=== PATIENT | female | born 1960 | race American Indian/Alaskan Native ===

== ENCOUNTER 2017-03-12 16:29 | Emergency (ER) | payer MEDICAID ==
[2017-03-12 17:32] VITALS: BP 117/69
--- NOTE | 2017-03-12 18:00 | Cat Scan Report ---
FINAL REPORT PROCEDURE: CT HEAD/BRAIN WO CON TECHNIQUE: Computerized tomography of the head was performed without contrast material. HISTORY: neuro deficits < 6hrs or sx present upon awakening COMPARISON: No prior studies are available for comparison. FINDINGS: Skull and scalp: Normal. Paranasal sinuses: Normal. Ventricles and subarachnoid spaces: Normal. Cerebrum: No evidence of hemorrhage, acute infarction or mass . Cerebellum and brainstem: No evidence of hemorrhage, acute infarction or mass. Vasculature: Dominant left vertebral artery Comments: None. IMPRESSION: No acute intracranial pathology seen at this time
[2017-03-12 19:02] LABS: Basophils % (Auto) 0.2 % (0.0-1.8); Eosinophils % (Auto) 0.4 % (0.0-4.3); Hematocrit 44.9 % (30.3-42.9); Hemoglobin 15.1 gm/dl (10.1-14.3); Lymphocytes # (Auto) 3.3 K/mm3 (1.2-5.4); Lymphocytes % (Auto) 30.8 % (13.4-35.0); Mean Corpuscular HGB Conc 34 % (30-34); Mean Corpuscular Hemoglobin 32 pg (28-32); Mean Corpuscular Volume 95 fl (79-97); Monocytes # (Auto) 0.6 K/mm3 (0.0-0.8); Platelet Count 197 K/mm3 (140-440); Red Blood Count 4.72 M/mm3 (3.65-5.03); Red Cell Distribution Width 13.8 % (13.2-15.2)
[2017-03-12 19:13] LABS: INR 0.89 (0.87-1.13)
[2017-03-12 19:14] LABS: Thrombin Time 16.3 Sec. (15.1-19.6)
[2017-03-12 19:36] LABS: BUN/Creatinine Ratio 20; Blood Urea Nitrogen 16 mg/dL (7-17); Hemolysis Index 10
== END 2017-03-12 23:05 | disposition left against medical advice (07) ==
LOC: ED 16:29
DX: H53.8 Other visual disturbances (principal); Z53.21 Procedure and treatment not carried out due to patient leaving prior to being seen by health care provider
CPT/HCPCS: 36415; 70450; 80048; 84484; 85025; 85610; 85670; 85730

== ENCOUNTER 2017-04-07 06:01 | Day surgery (SDC) | payer MEDICAID ==
--- NOTE | 2017-04-07 06:54 | Anesthesia Day of Surgery ---
Anesthesia Day of Surgery - Day of Surgery Patient Examined: Yes Patient H&P Reviewed: Yes Patient is NPO: Yes
--- NOTE | 2017-04-07 06:54 | Anesthesia Consultation ---
Anesthesia Consult and Med Hx Date of service: 04/07/17 - Airway Anesthetic Teeth Evaluation: Dentures ROM Head & Neck: Adequate Mental/Hyoid Distance: Adequate Mallampati Class: Class I Intubation Access Assessment: Good - Pulmonary Exam CTA: Yes - Cardiac Exam Cardiac Exam: RRR - Pre-Operative Health Status ASA Pre-Surgery Classification: ASA3 Proposed Anesthetic Plan: MAC (HIV) - Pulmonary Hx Smoking: Yes (FOR 20 YEARS, 1PPD) - Central Nervous System Hx Psychiatric Problems: No - Other Systems Hx Alcohol Use: No Hx Substance Use: No Hx Cancer: No
[2017-04-07] MEDS: MYDRIACYL OD SCH ×3 (06:55→07:05)
[2017-04-07] MEDS: AK-Dilate OD SCH ×3 (06:55→07:05)
[2017-04-07] MEDS: VIGAMOX OD SCH ×3 (06:55→07:05)
[2017-04-07] MEDS ORDERED: TETRACAINE 0.5% OD PRN (07:00)
[2017-04-07] MEDS ORDERED: VERSED ONE (07:46)
[2017-04-07] MEDS ORDERED: SUBLIMAZE ONE (07:46)
[2017-04-07] MEDS ORDERED: PRED FORTE 1% ONE (07:54)
[2017-04-07] MEDS ORDERED: VISION BLUE IO ONE ×2 (08:05→14:09)
[2017-04-07] MEDS ORDERED: DIAMOX IV ONE (08:35)
--- NOTE | 2017-04-07 08:37 | Operative Report ---
Operative Report Operative Report: PATIENT'S NAME: DATE OF : DATE OF SURGERY: 04/07/2017 PREOPERATIVE DIAGNOSIS: Cataract white right eye POSTOPERATIVE DIAGNOSIS: Same OPERATIVE PROCEDURE: Phacoemulsification with intraocular lens implantation, trypan blue right eye SURGEON: Abby Quiroz M.D. TREE FELLER OPERATOR SURGEON: Moriah Lens: [id number] 18.0 D ANESTHESIA: Monitored anesthesia care in combination with topical and intracameral anesthesia because of the established specific risk of reflux, arrhythmias, or anxiety attacks associated with ocular manipulation, as well as the difficulty of the print graphic designer to manage such potentially catastrophic events while simultaneously attempting to complete the surgical procedure and was deemed necessary for the patient's safety to have an Rawhide Bone Roller present during the procedure whenever possible. An Rawhide Bone Roller was utilized to regulate the intravenous sedation of the patient so the patient was cooperative yet not asleep in order for the patient to successfully maintain fixation of the eye on the operating light of the microscope. COMPLICATIONS: No surgical complications No blood loss. ALLERGIES: No known drug allergies PROGNOSIS: guarded INDICATIONS FOR SURGERY: The patient is undergoing surgery in the hopes of eliminating or improving these visual difficulties. PROCEDURE: After arriving at the surgery center, the patient was given topical anesthetic and dilating drops, as noted in the record. The patient was then taken into the operating room and given more anesthetic drops. The eyelids , lashes, and lid margins were scrubbed with Betadine solution, and the patient was draped. The Nurse Rawhide Bone Roller administered IV sedation and monitored the patient during the procedure. The eye was then fixated with a 0.12, and a stab incision was made in the peripheral clear cornea into the anterior chamber. This was made on my left side. Air followed by trypan blue was injected. Viscoelastic was next used to fill the anterior chamber. The eye was once again fixated with the 0.12 forceps and a keratome was used make an incision in clear cornea peripherally on my right hand side temporally. The capsule forceps were used to open the central anterior capsule and then make a continuous round capsulotomy. Hydrodissection was carried out utilizing a cannula and balanced salt solution to delineate the cortical material from the capsule and the nucleus from the cortical material. The phaco tip was introduced into the eye and used to remove the anterior cortical material in the area of the capsulotomy. Then the phaco tip was buried into the nucleus, and a chopping instrument was introduced into the eye and used to provide countertraction in the nucleus between this instrument and the phaco tip fracturing the nucleus. This procedure was repeated multiple times, providing multiple small segments of the lens, and then the phaco tip was used to remove each of these segments. An I/A tip was then used to remove the remaining cortex. The anterior chamber was refilled with viscoelastic. An one-piece, acrylic intraocular lens was then placed into an inserting cartridge. The tip of the inserting cartridge was introduced into the keratome incision and into the anterior chamber. The implant was gently advanced through the cartridge and into the eye, where it unfolded, and both haptics were placed in the capsular bag, where it centered nicely and appeared to be well fixated. After placement of the intraocular lens, the I~and~A handpiece was placed back into the eye and used to remove the viscoelastic, including viscoelastic that was behind the optic of the intraocular lens. The anterior chamber was then filled with balanced salt solution, and hydration of the wound was used to cause swelling of the wound and more appropriate watertight closure. When the wound was found to be firm, the patient was asked to comment on how bright the light was. If there was no light perception at all or if the light was substantially dimmer than during the rest of the surgery, the amount of fluid in the eye was decompressed to lower the intraocular pressure until the patient could see the bright light again. This was done to avoid any damage or decreased blood flow to the optic nerve. MEDICATIONS APPLIED AT END OF SURGERY: One drop of Pred Forte and Vigamox The patient was given a shield to wear at night and was instructed not to rub or push on the eye. DISCHARGE SUMMARY: The patient was released in stable condition. The patient and those with the patient were given a written sheet of postoperative instructions and counseling on any abnormal laboratory studies. The patient is to see us tomorrow for follow-up in the office and is to call immediately for any difficulties. Abby Quiroz M.D. Date
--- NOTE | 2017-04-07 08:38 | Short Stay Summary ---
Short Stay Documentation Date of service: 04/07/17 - History H&P: obtained from office - Allergies and Medications Current Medications: Allergies Unable to Assess Allergy (Verified 04/05/17 13:00) pt in triage Home Medications Medication Instructions Recorded Confirmed Last Taken Type Efavirenz/Emtricita/Tenofo(Nf) 1 tab PO DAILY 04/05/17 04/07/17 2 Days Ago History [Atripla (Nf)] ~04/05/17 Active Medications Acetazolamide (Diamox) 500 mg IV Q12HR ONE Stop: 04/07/17 08:36 Moxifloxacin HCl (Vigamox) 1 drops OD Q5MIN [facility] Stop: 04/09/17 07:01 Last Admin: 04/07/17 07:05 Dose: 1 drops Phenylephrine HCl (Ak-Dilate) 1 drops OD Q5MIN [facility] Stop: 04/09/17 07:01 Last Admin: 04/07/17 07:05 Dose: 1 drops Prednisolone Acetate (Pred Forte 1%) 1 drops OD QID [facility] Tetracaine HCl (Tetracaine 0.5%) 1 drops OD Q5M PRN PRN Reason: Analgesia Last Admin: 04/07/17 06:55 Dose: 1 drops Tropicamide (Mydriacyl) 1 drops OD Q5MIN [facility] Stop: 04/09/17 07:01 Last Admin: 04/07/17 07:05 Dose: 1 drops - Brief post op/procedure progress note Date of procedure: 04/07/17 Pre-op diagnosis: white cataract right eye Post-op diagnosis: same Procedure: Phacoemulsification with trypan blue right eye Anesthesia: MAC, local Surgeon: DEBBIE RUSSELL Estimated blood loss: none Pathology: none Condition: stable - Disposition Condition at discharge: Good Disposition: DC-01 TO HOME OR SELFCARE - Discharge Diagnoses (1) Age-related hypermature cataract Status: Resolved Qualifiers: Laterality: right Qualified Code(s): H25.21 - Age-related cataract, morgagnian type, right eye Short Stay Discharge Plan Additional Instructions: follow surgeon instruction sheets. Follow up with: TATIANNA LYNN MD [Primary Care Provider] - 7 Days Forms: Outpatient Surgery [place] Inst.
--- NOTE | 2017-04-07 08:41 | Post Anesthesia Evaluation ---
- Post Anesthesia Evaluation Patient Participated: Yes Airway Patent: Yes Stable Respiratory Function: Yes Nausea/Vomiting: No Temp > 96.8F: Yes Pain Manageable: Yes Adequeate Hydration: Yes Anesthesia Complications: No
[2017-04-07] MEDS ORDERED: PRED FORTE 1% OD SCH (10:00)
[2017-04-07 11:11] VITALS: BP 118/71
== END 2017-04-07 09:28 | disposition home or self-care (01) ==
LOC: OR 06:01
DX: H26.9 Unspecified cataract (principal); B20 Human immunodeficiency virus [HIV] disease; F17.210 Nicotine dependence, cigarettes, uncomplicated
CPT/HCPCS: 66984; J1120; J2250; J3010; V2632

== ENCOUNTER 2020-02-07 04:02 | Emergency (ER) | payer MEDICAID ==
[2020-02-07] MEDS ORDERED: ONDANSETRON 4 MG/2 ML INJ IV ONE (09:08)
[2020-02-07] MEDS ORDERED: SODIUM CHLORIDE 0.9% 1000 ML 1,000 ML IV ONE ×2 (09:08→13:00)
--- NOTE | 2020-02-07 09:09 | Emergency Department Report ---
ED General Adult HPI - General Chief complaint: Medical Clearance Stated complaint: WEAKNESS PUI?: No Time Seen by Provider: 02/07/20 09:05 Source: patient Mode of arrival: Stretcher Limitations: No Limitations - History of Present Illness Initial comments: Patient is a 59-year-old frail female that comes to the emergency room with reports of incontinence. She denies fever or chills. She denies chest pain or shortness of breath. She denies abdominal pain or back pain. She denies nausea vomiting or diarrhea. Patient has HIV and is on antivirals. She is followed by Dr. Rankin. Patient has not seen Dr. Rankin for these complaints. No allergies. -: Gradual, days(s) Severity scale (0 -10): 0 Associated Symptoms: denies: confusion, chest pain, cough, diaphoresis, fever/chills, headaches, loss of appetite, malaise, nausea/vomiting, rash, se izure, shortness of breath, syncope, weakness Treatments Prior to Arrival: none - Related Data Home Medications Medication Instructions Recorded Confirmed Last Taken Efavirenz/Emtricita/Tenofo(Nf) 1 tab PO DAILY 04/05/17 04/07/17 2 Days Ago [Atripla (Nf)] ~04/05/17 Previous Rx's Medication Instructions Recorded Last Taken Type Sulfamethoxazole/Trimethoprim 1 each PO BID #14 tablet 02/07/20 Unknown Rx [Bactrim DS TAB] Allergies Allergy/AdvReac Type Severity Reaction Status Date / Time Unable to Assess Allergy Verified 04/05/17 13:00 ED Review of Systems ROS: Stated complaint: WEAKNESS Other details as noted in HPI Comment: All other systems reviewed and negative ED Past Medical Hx - Past Medical History Previous Medical History?: Yes Hx HIV: Yes - Surgical History Past Surgical History?: Yes Hx Appendectomy: Yes Additional Surgical History: VAGINAL - Family History Family history: no significant - Social History Smoking Status: Current Some Day Smoker Substance Use Type: None - Medications Home Medications: Home Medications Medication Instructions Recorded Confirmed Last Taken Type Efavirenz/Emtricita/Tenofo(Nf) 1 tab PO DAILY 04/05/17 04/07/17 2 Days Ago History [Atripla (Nf)] ~04/05/17 Sulfamethoxazole/Trimethoprim 1 each PO BID #14 tablet 02/07/20 Unknown Rx [Bactrim DS TAB] ED Physical Exam - General Limitations: No Limitations General appearance: alert - Head Head exam: Present: atraumatic, normocephalic - Eye Eye exam: Present: normal appearance, PERRL - ENT ENT exam: Present: mucous membranes dry - Neck Neck exam: Present: normal inspection - Respiratory Respiratory exam: Present: normal lung sounds bilaterally. Absent: respiratory distress - Cardiovascular Cardiovascular Exam: Present: regular rate, normal rhythm. Absent: systolic murmur, diastolic murmur, rubs, gallop - GI/Abdominal GI/Abdominal exam: Present: soft, normal bowel sounds - Extremities Exam Extremities exam: Present: normal inspection - Back Exam Back exam: Present: normal inspection. Absent: CVA tenderness (R), CVA tenderness (L) - Neurological Exam Neurological exam: Present: alert, oriented X3 - Psychiatric Psychiatric exam: Present: normal affect, normal mood - Skin Skin exam: Present: warm, dry, intact, normal color. Absent: rash ED Course Vital Signs 02/07/20 04:15 Temperature 99.5 F Pulse Rate 99 H Respiratory 18 Rate Blood Pressure 108/65 [Right] O2 Sat by Pulse 96 Oximetry ED Medical Decision Making - Lab Data Result diagrams: 02/07/20 05:20 02/07/20 10:28 - Radiology Data Radiology results: report reviewed, image reviewed NAP - Medical Decision Making PT HAS HIV IS FOLLOWED BY DR RANKIN NO FEVER OR CHILLS XRAY NAP LABS NOTED WBC normal. HYDRATED WITH 2L NS AND GIVEN AZITHRO FOR EMPIRIC COVERAGE 1540 UA NOTED CULTURE ORDERED TAKING PO AMBULATING WITHOUT DIFFICULTY PT TO BE DC HOME on Bactrim and PCP follow-up in 48 hours to make sure she is responding appropriately. Patient verbalizes an understanding of the importance of following up given her HIV status. Patient being discharged home verbalizing understanding of discharge medications, diet activity and follow-up. On discharge she is taking p.o. and is ambulatory without difficulty. Labs 02/07/20 02/07/20 02/07/20 05:20 10:28 10:28 WBC 9.9 RBC 3.40 L Hgb 10.4 Hct 30.7 MCV 90 MCH 31 MCHC 34 RDW 14.4 Plt Count 231 Lymph % (Auto) 4.6 L Mcdonough % (Auto) 10.0 H Eos % (Auto) 0.0 Baso % (Auto) 0.1 Lymph # (Auto) 0.5 L Mcdonough # (Auto) 1.0 H Eos # (Auto) 0.0 Baso # (Auto) 0.0 Seg Neutrophils % 85.3 H Seg Neutrophils # 8.4 H Sodium 135 L Potassium 3.9 Chloride 102.2 Carbon Dioxide 19 L Anion Gap 18 BUN 19 H Creatinine 0.8 Estimated GFR > 60 BUN/Creatinine Ratio 24 Glucose 73 Calcium 8.9 Total Bilirubin 0.40 AST 19 ALT 13 Alkaline Phosphatase 65 Total Protein 7.3 Albumin 3.4 L Albumin/Globulin Ratio 0.9 Lipase 26 Urine Bilirubin Urine RBC (Auto) U Epithel Cells (Auto) 02/07/20 Unknown WBC RBC Hgb Hct MCV MCH MCHC RDW Plt Count Lymph % (Auto) Mcdonough % (Auto) Eos % (Auto) Baso % (Auto) Lymph # (Auto) Mcdonough # (Auto) Eos # (Auto) Baso # (Auto) Seg Neutrophils % Seg Neutrophils # Sodium Potassium Chloride Carbon Dioxide Anion Gap BUN Creatinine Estimated GFR BUN/Creatinine Ratio Glucose Calcium Total Bilirubin AST ALT Alkaline Phosphatase Total Protein Albumin Albumin/Globulin Ratio Lipase Urine Bilirubin Neg Urine RBC (Auto) 1.0 U Epithel Cells (Auto) 1.0 Vital Signs 02/07/20 04:15 Temperature 99.5 F Pulse Rate 99 H Respiratory 18 Rate Blood Pressure 108/65 [Right] O2 Sat by Pulse 96 Oximetry - Differential Diagnosis RO UTI/RO URI Critical care attestation.: If time is entered above; I have spent that time in minutes in the direct care of this critically ill patient, excluding procedure time. ED Disposition Clinical Impression: UTI (urinary tract infection), Hx of human immunodeficiency virus infection Disposition: TO HOME OR SELFCARE Is pt being admited?: No Does the pt Need Aspirin: No Condition: Stable Instructions: Urinary Tract Infection, Adult, [id number] Additional Instructions: Stay well-hydrated with water Follow-up with your PCP in 48 hours to make sure you are getting better. Let him know that we do have a urine culture pending should he need it. Diet and activity as tolerated Medications as ordered today Prescriptions: Sulfamethoxazole/Trimethoprim [Bactrim DS TAB] 1 each PO BID #14 tablet Referrals: RICHARD RANKIN MD [Primary Care Provider] - 3-5 Days EMILY BROOKS MD [Staff Physician] - 3-5 Days Time of Disposition: 15:31
--- NOTE | 2020-02-07 09:48 | XRay Report ---
CHEST / ABDOMEN 3 VIEW INDICATION / CLINICAL INFORMATION: n/v; cough; hiv. COMPARISON: None available. FINDINGS: SUPPORT DEVICES: None. HEART / MEDIASTINUM: No significant abnormality. LUNGS / PLEURA: Minimally coarsened bilateral interstitial lung markings are likely chronic finding. No confluent infiltrates or pleural effusions. Prominent bilateral nipple shadows are noted. No pneum othorax. TUBES / LINES: None. BOWEL GAS PATTERN: Nonobstructive bowel gas pattern. FREE AIR / EXTRALUMINAL GAS: None seen. ADDITIONAL FINDINGS: No significant additional findings. IMPRESSION: 1. No acute findings. 2. Coarsened interstitial lung markings are likely chronic finding. 3. Nonobstructive bowel gas pattern. Signer Name: Franko Cordon MD Signed: 02/07/2020 9:44 AM Workstation Name: [id number]
[2020-02-07 10:30] LABS: Basophils % (Auto) 0.1 % (0.0-1.8); Hematocrit 30.7 % (30.3-42.9); Hemoglobin 10.4 gm/dl (10.1-14.3); Lymphocytes # (Auto) 0.5 K/mm3 (1.2-5.4); Lymphocytes % (Auto) 4.6 % (13.4-35.0); Mean Corpuscular HGB Conc 34 % (30-34); Mean Corpuscular Volume 90 fl (79-97); Platelet Count 231 K/mm3 (140-440); Red Cell Distribution Width 14.4 % (13.2-15.2)
[2020-02-07] MEDS ORDERED: AZITHROMYCIN 500 MG in SODIUM CHLORIDE 0.9% 250ML 250 ML IV ONE (11:00)
[2020-02-07 11:16] LABS: Alanine Aminotransferase 13 units/L (7-56); Albumin 3.4 g/dL (3.9-5); BUN/Creatinine Ratio 24; Blood Urea Nitrogen 19 mg/dL (7-17); Calcium 8.9 mg/dL (8.4-10.2); Hemolysis Index 22
[2020-02-07 15:28] LABS: Bilirubin,Urine NEG (Negative); Blood,Urine NEG (Negative); Color,Urine Yellow (Yellow); Protein,Urine <15 mg/dL mg/dL (Negative)
[2020-02-07] MEDS ORDERED: SULFAMETHOXAZOLE/TRIMETHOPRIM 800/160MG DS TAB PO ONE (15:40)
[2020-02-07 16:07] VITALS: BP 96/61
== END 2020-02-07 16:06 | disposition home or self-care (01) ==
LOC: ED 04:02
DX: N39.0 Urinary tract infection, site not specified (principal); F17.200 Nicotine dependence, unspecified, uncomplicated; Z90.49 Acquired absence of other specified parts of digestive tract; Z98.890 Other specified postprocedural states; Z79.899 Other long term (current) drug therapy; Z21 Asymptomatic human immunodeficiency virus [HIV] infection status
CPT/HCPCS: 36415; 74022; 80053; 81001; 83690; 85025; 87086; 96361; 96365; 96366; 96375; 99284; J0456; J2405; J7030; J7050